=== PATIENT | female | born 1960 | race Two or more races ===

== ENCOUNTER 2017-10-23 18:36 | Emergency (ER) | payer OTHER ==
[~2017-10-23] VITALS: Ht 165.1 cm; Wt 72.6 kg
[2017-10-24] MEDS ORDERED: PEPCID40 MG PO (03:06)
[2017-10-24] MEDS ORDERED: ZOFRAN ODT4 MG PO (03:06)
[2017-10-24] MEDS ORDERED: HYDRALAZINE HCL25 MG PO (03:06)
== END 2017-10-24 03:38 | disposition home or self-care (01) ==
LOC: ER 18:36
DX: B34.9 Viral infection, unspecified (principal); R51 Headache